=== PATIENT | female | born 1945 | race Caucasian/White ===

== ENCOUNTER 2021-06-28 19:38 | Emergency (ER) | payer MEDICARE | END 2021-06-28 20:49 | disposition left against medical advice (07) | LOC: ER 19:38 | DX: R06.00 Dyspnea, unspecified (principal); R05.9 Cough, unspecified; M79.10 Myalgia, unspecified site; R50.9 Fever, unspecified; Z53.21 Procedure and treatment not carried out due to patient leaving prior to being seen by health care provider ==